=== PATIENT | male | born 1965 | race Caucasian/White ===

== ENCOUNTER → 2020-07-17 05:58 | Day surgery (SDC) | payer OTHER ==
[2020-07-17 06:22] LABS: HEMATOCRIT 47.7 % (42.0-54.0); HEMOGLOBIN 16.1 g/dL (13.5-17.5); MCH 29.3 pg (26.0-34.0); MCHC 33.7 g/dL (31.0-37.0); MEAN PLATELET VOLUME 8.2 fL (7.4-10.4); RBC 5.48 10x6/uL (4.20-6.10); RDW 12.8 % (11.5-14.5); WBC 9.9 10x3/uL (4.8-10.8)
[2020-07-17 06:43] LABS: CALC OSMOLALITY 278 mosm/kg (275-300); CALCIUM 9.5 mg/dL (8.5-10.1); CARBON DIOXIDE 25.5 mmol/L (21.0-32.0); CHLORIDE - SERUM 102 mmol/L (98-107); GLUCOSE 109 mg/dL (74-106); POTASSIUM - SERUM 4.2 mmol/L (3.5-5.1); SODIUM 138 mmol/L (136-145); UREA NITROGEN 19 mg/dL (7-18); eGFR NON AFRICAN AMERICAN 83 mL/min (90-120)
--- NOTE | 2020-07-17 07:12 | NUR ---
pt. decided not to do procedure. iv discontinued by patient, cotton ball and bandaid applied. discharge instruction given. patient left with adc guards.
== END | disposition home or self-care (01) ==
LOC: D.OPS 05:58
PROVIDERS: Anesthesiology; ATTEND Surgery
DX: K22.2 Esophageal obstruction (principal); Z53.20 Procedure and treatment not carried out because of patient's decision for unspecified reasons